=== PATIENT | male | born 1965 | race Caucasian/White ===

== ENCOUNTER 2017-11-01 18:25 | Emergency (ER) | payer OTHER ==
[~2017-11-01] VITALS: Ht 177.8 cm; Wt 95.0 kg
[2017-11-01 18:27] VITALS: BP 152/84; PULSE 89; RESP 16; TEMP 98.4; O2SAT 99
--- NOTE | 2017-11-01 19:56 | PD ---
HPI Chief Complaint: Back/ Neck Pain or Injury Time Seen by Provider: 19:45 Travel History International Travel<30 days: No Contact w/Intl Traveler<30days: No Traveled to known affect area: No History of Present Illness HPI 52-year-old male presents for evaluation of lower back pain. At 3 PM today he reports that he was bent over attempting to lift a 5 gallon salt water bucket when he felt a sudden severe sharp right lower back pain that radiates into the right groin. Pain is constant but worse with movement. He took some over-the- counter Motrin but symptoms persist. Denies any bowel or bladder incontinence, saddle anesthesia, hematuria, numbness or tingling or weakness in the lower extremities. He has no other complaints at this time. [facility] Past Medical History Medical History: Denies Significant Hx Social History Alcohol Use: No Tobacco Use: No Allergies-Medications (Allergen,Severity, Reaction): Coded Allergies: No Known Allergies (Verified Allergy, Unknown, 11/01/17) Reported Meds & Prescriptions Reported Meds & Active Scripts Active Baclofen 10 Mg Tab 10 Mg PO TID [address] (Diclofenac Sodium) 75 Mg Tabdr 75 Mg PO BID 14 Days Lidocaine Patch 12 HR (Lidocaine) 5 % Patch 1 Patch TOPICAL DAILY PRN Remove patch after 12 hours Reported Nexium (Esomeprazole DR) 20 Mg Capdr 20 Mg PO DAILY Review of Systems Except as stated in HPI: all other systems reviewed are Neg Physical Exam Narrative GENERAL: Well-nourished male in no acute distress. Ambulatory in the ED. SKIN: Warm and dry. HEAD: Atraumatic. Normocephalic. EYES: Pupils equal and round. No scleral icterus. No injection or drainage. ENT: No nasal bleeding or discharge. Mucous membranes pink and moist. NECK: Trachea midline. No JVD. CARDIOVASCULAR: Regular rate and rhythm. No murmur appreciated. RESPIRATORY: No accessory muscle use. Clear to auscultation. Breath sounds equal bilaterally. GASTROINTESTINAL: Abdomen soft, non-tender, nondistended. Hepatic and splenic margins not palpable. examination reveals normal scrotum with distended testicles, no palpable inguinal hernia. MUSCULOSKELETAL: No obvious deformities. There is some tenderness to palpation of the right lumbar paravertebral musculature. No tenderness to palpation along the thoracic or lumbar midline. 5 out of 5 muscle strength in lower extremities bilaterally. 1+ patellar reflex bilaterally. NEUROLOGICAL: Awake and alert. No obvious cranial nerve deficits. Motor grossly within normal limits. Normal speech. PSYCHIATRIC: Appropriate mood and affect; insight and judgment normal. Data Data Last Documented VS Vital Signs Date Time Temp Pulse Resp B/P (MAP) Pulse Ox O2 Delivery O2 Flow Rate FiO2 11/01/17 20:01 20 11/01/17 18:27 98.4 89 152/84 (106) 99 Orders Orders Complete Blood Count With Diff (11/01/17 19:50) Comprehensive Metabolic Panel (11/01/17 19:50) Urinalysis - C+S If Indicated (11/01/17 19:50) Ct Abd/Pel W/O Iv Contrast (11/01/17 19:50) Iv Access Insert/Monitor (11/01/17 19:50) Ketorolac Inj (Toradol Inj) (11/01/17 20:00) Orphenadrine Inj (Norflex Inj) (11/01/17 20:00) Tramadol (Ultram) (11/01/17 20:00) Labs Laboratory Tests Test 11/01/17 20:15 White Blood Count 9.1 TH/MM3 Red Blood Count 4.93 MIL/MM3 Hemoglobin 15.3 GM/DL Hematocrit 44.1 % Mean Corpuscular Volume 89.5 FL Mean Corpuscular Hemoglobin 31.0 PG Mean Corpuscular Hemoglobin Concent 34.7 % Red Cell Distribution Width 13.2 % Platelet Count 210 TH/MM3 Mean Platelet Volume 8.4 FL Neutrophils (%) (Auto) 63.6 % Lymphocytes (%) (Auto) 27.2 % Monocytes (%) (Auto) 7.1 % Eosinophils (%) (Auto) 1.6 % Basophils (%) (Auto) 0.5 % Neutrophils # (Auto) 5.8 TH/MM3 Lymphocytes # (Auto) 2.5 TH/MM3 Monocytes # (Auto) 0.6 TH/MM3 Eosinophils # (Auto) 0.1 TH/MM3 Basophils # (Auto) 0.0 TH/MM3 CBC Comment DIFF FINAL Differential Comment Urine Color YELLOW Urine Turbidity CLEAR Urine pH 5.0 Urine Specific [place] 1.026 Urine Protein NEG mg/dL Urine Glucose (UA) NEG mg/dL Urine Ketones 40 mg/dL Urine Occult Blood NEG Urine Nitrite NEG Urine Bilirubin NEG Urine Urobilinogen LESS THAN 2.0 MG/DL Urine Leukocyte Esterase NEG Urine RBC 1 /hpf Urine WBC LESS THAN 1 /hpf Urine Mucus FEW /lpf Microscopic Urinalysis Comment CULT NOT INDICATED Blood Urea Nitrogen 25 MG/DL Creatinine 1.36 MG/DL Random Glucose 85 MG/DL Total Protein 7.9 GM/DL Albumin 3.9 GM/DL Calcium Level 9.3 MG/DL Alkaline Phosphatase 77 U/L Aspartate Amino Transf (AST/SGOT) 24 U/L Alanine Aminotransferase (ALT/SGPT) 30 U/L Total Bilirubin 0.5 MG/DL Sodium Level 140 MEQ/L Potassium Level 3.9 MEQ/L Chloride Level 105 MEQ/L Carbon Dioxide Level 27.4 MEQ/L Anion Gap 8 MEQ/L Estimat Glomerular Filtration Rate 55 ML/MIN MDM Medical Decision Making Medical Screen Exam Complete: Yes Emergency Medical Condition: Yes Medical Record Reviewed: Yes Differential Diagnosis Lumbar strain, spasm, spinal cord injury, herniated nucleus pulposus, inguinal hernia, renal stone Narrative Course 52-year-old male with right-sided lower back pain that radiated to the right lower abdomen/groin which started suddenly after attempting to lift a 5 gallon salt water bucket. Plan is for basic lab work, urinalysis, CT abdomen and pelvis. He will be given IV Toradol, Norflex as well as oral tramadol. Lab work and imaging studies reviewed and found to be reassuring. The patient appears to have a muscle strain. He is stable for discharge. Diagnosis Primary Impression: Lumbar strain Qualified Codes: S39.012A - Strain of muscle, fascia and tendon of lower back , initial encounter Additional Instructions: Medication as needed. Do not drive or drink alcohol and taking baclofen. Avoid strenuous activity, heavy lifting. Follow-up in 2 weeks with primary care and return for any emergent medical conditions. Med/Other Pt SpecificInfo: Prescription(s) given Scripts Baclofen (Baclofen) 10 Mg Tab 10 MG PO TID for Muscle Spasm for 7 Days, TAB 0 Refills Prov: Becky Landeros MD 11/01/[address] (Diclofenac Sodium DR) 75 Mg Tabdr 75 MG PO BID for 14 Days, #28 TAB 0 Refills Prov: Becky Landeros MD 11/01/17 Lidocaine Patch 12 HR (Lidocaine Patch 12 HR) 5 % Patch 1 PATCH TOPICAL DAILY Y for PAIN, #1 BOX 1 Refill Remove patch after 12 hours Prov: Becky Landeros MD 11/01/17 Disposition: 01 DISCHARGE HOME Condition: Stable Aubrey Armijo Nov 01, 2017 19:56
[2017-11-01] MEDS ORDERED: NEXI20CA PO (20:00)
[2017-11-01] MEDS ORDERED: KETOROLAC TROMETHAMINE 30 MG/ML (IVP) VIAL IV PUSH ONE (20:00)
[2017-11-01] MEDS ORDERED: ORPHENADRINE INJ 60 MG/2 ML AMP IV ONE (20:00)
[2017-11-01] MEDS ORDERED: traMADol HCL 50 MG TAB PO ONE (20:00)
[2017-11-01 20:39] LABS: BLOOD, URINE NEG (NEG); GLUCOSE,URINE NEG (NEG); KETONE, URINE 40 mg/dL (NEG); MUCUS URINE FEW /lpf (OCC); NITRITE,URINE NEG (NEG); URINE COLOR YELLOW (YELLW/STRAW)
[2017-11-01 20:43] LABS: AUTOMATED NEUTROPHIL # 5.8 TH/MM3 (1.8-7.7); BASOPHIL % 0.5 % (0.0-2.0); COMMENT (UR) CULT NOT INDICATED; CULTURE IF INDICATED CULT NOT INDICATED; EOSINOPHIL # 0.1 TH/MM3 (0-0.4); EOSINOPHIL % 1.6 % (0.0-4.0); HEMATOCRIT 44.1 % (39.0-51.0); HEMO FLAGS DIFF FINAL; LYMPH % 27.2 % (9.0-44.0); LYMPHOCYTE # 2.5 TH/MM3 (1.0-4.8); MEAN CELL VOLUME 89.5 FL (80.0-100.0); MEAN CORPUSCULAR HGB CONC 34.7 % (32.0-36.0); MONO % 7.1 % (0.0-8.0); NEUT % 63.6 % (16.0-70.0); PLATELET COUNT 210 TH/MM3 (150-450); RED BLOOD COUNT 4.93 MIL/MM3 (4.50-5.90); RED CELL DISTRIBUTION WIDTH 13.2 % (11.6-17.2); WHITE BLOOD COUNT 9.1 TH/MM3 (4.0-11.0)
--- NOTE | 2017-11-01 20:50 | RADRPT ---
EXAM DATE/TIME: 11/01/2017 20:21 [place] COMPARISON: No previous studies available for comparison. INDICATIONS : Back pain following lifting injury ORAL CONTRAST: No oral contrast ingested. RADIATION DOSE: 16.57 CTDIvol (mGy) MEDICAL HISTORY : None SURGICAL HISTORY : None. ENCOUNTER: Initial ACUITY: 1 day PAIN SCALE: 8/10 LOCATION: Right flank TECHNIQUE: Volumetric scanning of the abdomen and pelvis was performed. Using automated exposure control and ad justment of the mA and/or kV according to patient size, radiation dose was kept as low as reasonably achievable to obtain optimal diagnostic quality images. DICOM format image data is available electro nically for review and comparison. FINDINGS: LOWER LUNGS: The visualized lower lungs are clear. LIVER: Homogeneous density without lesion. There is no dilation of the biliary tree. No calcified gallston es. SPLEEN: Normal size without lesion. PANCREAS: Within normal limits. KIDNEYS: Normal in size and shape. There is no mass, stone, or hydronephrosis. ADRENAL GLANDS: Within normal limits. VASCULAR: There is no aortic aneurysm. BOWEL/MESENTERY: The stomach, small bowel, and colon demonstrate no acute abnormality. There is no free intraperitone al air or fluid. ABDOMINAL WALL: Within normal limits. RETROPERITONEUM: There is no lymphadenopathy. BLADDER: No wall thickening or mass. REPRODUCTIVE: Within normal limits. INGUINAL: There is no lymphadenopathy or hernia. MUSCULOSKELETAL: Mild disc space narrowing and moderate bilateral facet osteoarthritis seen at L4/L5 and L5/S1. There is a left paracentral disc protrusion at L4/L5 and a central right paracentral disc protrusion at L5/ S1, both age indeterminate. CONCLUSION: 1. No acute abnormality within the abdomen or pelvis. 2. Lower lumbar degenerative changes as above. They are age indeterminate disc protrusions at both L4 /L5 and L5/S1. Shon Cruz MD on November 01, 2017 at 20:46 Board Certified Radiologist. This report was verified electronically.
[2017-11-01 20:58] LABS: ANION GAP 8 MEQ/L (5-15); AST (GOT) 24 U/L (15-37); BICARBONATE 27.4 MEQ/L (21.0-32.0); BLOOD UREA NITROGEN 25 MG/DL (7-18); CHLORIDE 105 MEQ/L (98-107); GLOMERULAR FILTRATION RATE 55 ML/MIN (>89); POTASSIUM 3.9 MEQ/L (3.5-5.1); SODIUM (NA) 140 MEQ/L (136-145)
[2017-11-01 20:59] LABS: ALT (GPT) 30 U/L (12-78)
[2017-11-01] MEDS ORDERED: LIDO1PAD52 TOPICAL (21:00)
[2017-11-01] MEDS ORDERED: DICL75TA PO (21:00)
[2017-11-01] MEDS ORDERED: BACL10TA PO (21:00)
[2017-11-01 21:01] LABS: ALKALINE PHOSPHATASE 77 U/L (45-117); TOTAL BILIRUBIN ADULT 0.5 MG/DL (0.2-1.0)
== END 2017-11-01 21:21 | disposition home or self-care (01) ==
LOC: NEPD 18:25
DX: S39.012A Strain of muscle, fascia and tendon of lower back, initial encounter (principal); R10.31 Right lower quadrant pain; X50.0XXA Overexertion from strenuous movement or load, initial encounter
CPT/HCPCS: 74176; 80053; 81001; 85025; 96374; 96375; 99285; J1885; J2360